=== PATIENT | male | born 2000 | race Caucasian/White ===

== ENCOUNTER 2018-12-17 16:58 | Emergency (ER) | payer BC ==
[2018-12-17] MEDS ORDERED: LET GEL TOPICAL 1 EA SYR TP ONE (17:54)
--- NOTE | 2018-12-17 17:54 | EDPHY ---
General Time Seen by Provider: 12/17/18 17:37 Narrative: CLINICAL IMPRESSION: Chin laceration ASSESSMENT/PLAN: 18-year-old male presents to the emergency department after he tripped up a step today and struck his chin on the step. He did not have loss of consciousness, reports no headache, dizziness, vertigo, jaw pain, dental fracture, intraoral laceration or malocclusion. No reproducible pain along palpation of the mandible. Chin laceration was repaired by myself as per chart notes. Tetanus up-to-date. No midline neck pain or upper extremity radiculopathy. Wound care discussed, PCP follow-up recommended, warning signs return to ED outlined discharge. DIFFERENTIAL DIAGNOSIS: includes but not limited to laceration of tendon or vascular structure, underlying fracture, laceration with retained FB ED PROCEDURES: Laceration Repair Verbal consent obtained by patient. Risks discussed, including but not limited to infection, pain, retained foreign body, need for additional repair, poor cosmetic result, tendon damage, nerve damage, poor wound healing, vascular damage. Alternatives to repair discussed. [place] protocol used to establish correct patient, procedure, equipment, windows desktop support, and site. Anesthesia obtained by local infiltration. Anesthetized with 2% lidocaine with epinephrine. Laceration location chin, length 1.5 cm, depth 3 mm, Repair type intermediate. Patient was prepped and draped in usual sterile fashion. Hemostasis achieved with direct pressure. Wound explored through full range of motion and entire depth of wound probed and visualized with gloved finger. No suspicion for nerve damage, tendon damage, underlying fracture, vascular damage, foreign body, or contamination. Area was cleansed with Shur-Clens and irrigated with sterile saline as per protocol. No foreign body or material removed. Repair method 4 0 Vicryl subcutaneous simple interrupted suture, #1. Six 0 Prolene superficial, simple interrupted suture, #4. Five sutures placed. Well aligned, closely approximated. wound was dressed with bacitracin and bandage. Patient tolerated well with no immediate complications. Wound care: Clean and dry x 24 hours, gently clean with soap and water, cover with topical antibiotic ointment/bandage. Suture/Staple removal: 5-6 Days CHIEF COMPLAINT: Laceration HPI: 18-year-old intoxicated male presents to the emergency department after he was attempting to go up some steps, tripped and fell into the step sustaining a chin laceration. He denies loss of consciousness. He did not break any teeth, sustain any intraoral lacerations and has no complaints of jaw or neck pain. He denies any other injuries. Tetanus is up-to-date. Patient states "I am only worried about my chin". PAST MEDICAL HISTORY: None reported Pertinent Past Surgical History: None reported Social History: [employer] student, tetanus up-to-date REVIEW OF SYSTEMS: All other systems negative Constitutional: No fever, no chills Musculoskeletal: No deformity, no joint pain Skin: Laceration to chin Neurological: No sensory loss or weakness, 2 point discrimination intact. PHYSICAL EXAM: General Appearance: Alert, oriented, appropriate for age, cooperative, NAD, well hydrated, non-toxic appearing, intoxicated, VSS, no hypoxia. Neurological: Alert and oriented x 3 HEENT. No intraoral laceration. No pain reproducible to the mandible or mandibular condyles. No external auditory canal laceration. Skin: 1 cm stellate laceration to the chin. No intraoral laceration or tongue laceration Musculoskeletal: No midline neck pain. Full range of motion of neck and bilateral upper extremities. Tool Or Die Drawing Checker strength 5/5. MEDICAL DECISION MAKING: Patient was seen independently. Secondary supervising physician at time of evaluation was Dr. Quick. Diagnosis: Chin laceration. New, requires workup Summary: See assessment and plan for summary of ED visit Patient Progress improved, stable for discharge. - History Smoking Status: Never smoked - Objective Vital Signs: Initial Vital Signs Temperature (C) 37.0 C 12/17/18 17:00 Heart Rate 75 12/17/18 17:00 Respiratory Rate 18 12/17/18 17:00 Blood Pressure 115/74 12/17/18 17:00 O2 Sat (%) 97 12/17/18 17:00 O2 Delivery Mode Room Air Medications Given: Discontinued Medications Tetracaine/Epinephrine/Lidocaine (Let Gel Topical) 1 ea TP EDNOW ONE Stop: 12/17/18 17:55 Last Admin: 12/17/18 18:37 Dose: 1 ea Departure - Departure Disposition: Home, Routine, Self-Care Clinical Impression: Chin laceration Condition: Good Instructions: Laceration (ED) Additional Instructions: DISCHARGE INSTRUCTIONS FROM YOUR DOCTOR Thank you for visiting our emergency department today. You were treated by a physician assistant manager today and your case was reviewed with our ED Attending physician. Please keep in mind that discharge from the emergency department does not mean that there is nothing wrong - it simply means that we have not identified an emergency condition that requires further evaluation or treatment in the hospital. You should always plan to follow up with primary care for re- evaluation of your condition in the next 2-3 days. If you have been referred to a specialist, please call as soon as possible (today or tomorrow) to schedule your follow up appointment at the appropriate time. [ PLEASE HAVE SUTURES/SERGEI REMOVED IN 5 DAYS. YOU CAN RETURN TO THE EMERGENCY DEPARTMENT OR YOUR PRIMARY CARE FOR SUTURE/STAPLE REMOVAL. AVOID SUBMERGING SUTURES/SERGEI UNDERWATER FOR PROLONGED PERIOD OF TIME UNTIL REMOVED. KEEP WOUND CLEAN AND DRY, COVER WITH ANTIBIOTIC OINTMENT AND BAND-AID. RETURN TO EMERGENCY DEPARTMENT FOR REDNESS, SWELLING, DISCHARGE, WARMTH TO THE SKIN, OR ANY OTHER CONCERNS FOR INFECTION. ] People present with illnesses and injuries in different ways, and it is always possible that we have missed something. You may always return for re-evaluation if symptoms worsen or if they are not improving or if you develop new/different symptoms. Again, thank you for choosing our emergency department. We hope that you feel better. Referrals: NONE *PRIMARY CARE P,. [Primary Care Provider] - As per Instructions [facility],. [Clinic] - As per Instructions
[2018-12-17 19:15] VITALS: BP 109/69
== END 2018-12-17 19:13 | disposition home or self-care (01) ==
PROC: 0HQ1XZZ Repair Face Skin, External Approach (ICD-10-PCS; principal; 2018-12-17)
DX: S01.81XA Laceration without foreign body of other part of head, initial encounter (principal); F10.920 Alcohol use, unspecified with intoxication, uncomplicated; W01.198A Fall on same level from slipping, tripping and stumbling with subsequent striking against other object, initial encounter; Y92.9 Unspecified place or not applicable; Y93.9 Activity, unspecified; Y99.9 Unspecified external cause status